=== PATIENT | female | born 1955 ===

== ENCOUNTER 2019-02-01 07:51 | Outpatient (CLI) | payer OTHER | END 2019-02-01 07:56 | disposition home or self-care (01) | LOC: SONOGRAMA 07:51 → MAMO-SONO 08:15 | DX: N94.89 Other specified conditions associated with female genital organs and menstrual cycle (principal) ==

== ENCOUNTER 2024-12-07 07:20 | Outpatient (CLI) | payer OTHER | END 2024-12-07 07:23 | disposition home or self-care (01) | LOC: RAD 07:20 | PROVIDERS: ATTEND Orthopaedic Surgery | DX: S42.224A 2-part nondisplaced fracture of surgical neck of right humerus, initial encounter for closed fracture (principal); X58.XXXA Exposure to other specified factors, initial encounter; Y93.9 Activity, unspecified; Y92.9 Unspecified place or not applicable; Y99.9 Unspecified external cause status ==

== ENCOUNTER 2025-03-14 07:04 | Outpatient (CLI) | payer OTHER | END 2025-03-14 07:09 | disposition home or self-care (01) | LOC: SONOGRAMA 07:04 → RAD 07:04 | PROVIDERS: ATTEND Orthopaedic Surgery | DX: M25.511 Pain in right shoulder (principal); S42.224D 2-part nondisplaced fracture of surgical neck of right humerus, subsequent encounter for fracture with routine healing; X58.XXXD Exposure to other specified factors, subsequent encounter ==